=== PATIENT | male | born 1970 | race Asian ===

== ENCOUNTER 2018-08-25 15:08 | Outpatient (CLI) | payer OTHER, SELFPAY ==
[2018-08-25 15:33] LABS: Hemoglobin A1C 8.3 % (4.5-6.2)
[2018-08-25 15:58] LABS: CREATININE 0.97 mg/dL (0.70-1.30); Potassium 4.2 mmol/L (3.5-5.1)
[2018-08-26 11:09] LABS: Cholesterol 222 mg/dL (50-200); HDL Cholesterol 30 mg/dL (40-60); LDL CHOLESTEROL 87 mg/dL (<100); Triglyceride 670 mg/dL (30-150)
== END 2018-08-25 15:28 ==
PROVIDERS: PCP Family Medicine; Visit Provider Family Medicine
DX: E11.9 Type 2 diabetes mellitus without complications (principal); E78.1 Pure hyperglyceridemia
CPT/HCPCS: 36415; 80061; 83721; 82565; 83036; 84132

== ENCOUNTER 2019-11-22 22:42 | Outpatient (REF) | payer OTHER, SELFPAY ==
[2019-11-22 21:40] LABS: Anion Gap 10.2 mmol/L (3-11); BUN 20 mg/dL (7-18); CO2 25.8 mmol/L (21.0-32.0); CREATININE 1.39 mg/dL (0.70-1.30); Calcium 9.2 mg/dL (8.5-10.1); Chloride 106 mmol/L (98-107); Cholesterol 185 mg/dL (<200); Estimated GFR 54.31 (mL/min/1.73m2); Glucose 180 mg/dL (74-106); HDL Cholesterol 30 mg/dL (40-60); Hemoglobin A1C 8.6 % (3.8-5.6); Potassium 3.7 mmol/L (3.5-5.1); Sodium 142 mmol/L (136-145); Triglyceride 546 mg/dL (<150)
[2019-11-22 21:59] LABS: LDL CHOLESTEROL 92 mg/dL (<100)
[2019-11-22 22:12] LABS: Microalb ug/mg Crea 7.4 ug/mg Cr
== END 2019-11-22 23:02 ==
LOC: LBN 22:42
PROVIDERS: PCP Family Medicine; Visit Provider Family Medicine
DX: E11.65 Type 2 diabetes mellitus with hyperglycemia (principal); E78.5 Hyperlipidemia, unspecified; E87.1 Hypo-osmolality and hyponatremia
CPT/HCPCS: 80048; 80061; 83721; 82043; 82570; 83036

== ENCOUNTER 2020-12-04 11:43 | Emergency (ER) | payer OTHER, SELFPAY ==
--- NOTE | 2020-12-04 11:45 | DI.RAD_ITS ---
Exam(s) XR THUMB LT EXAM: XR THUMB LT CLINICAL HISTORY: fb through thumb. TECHNIQUE: 2D digital imaging was performed. COMPARISON: No exams were available for comparison FINDINGS: There is no evidence of acute fracture. No radiopaque foreign body. There are corticated calcific d ensities around the distal interphalangeal joint which do not have the appearance of acute fracture f ragments. There is no radiographic evidence of osteomyelitis, given the puncture wound history here. IMPRESSION: DATA REPOSITORY: RADIATION DOSE DELIVERED:
[2020-12-04 11:46] VITALS: BP 149/105; PULSE 80; RESP 15; TEMP 36.4; O2SAT 98
--- NOTE | 2020-12-04 13:42 | ED.GENADUL_ITS ---
Discharge Plan Disposition Patient Disposition: HOME Condition: Good Discharge Details Clinical Impression: Puncture wound Primary Care Provider: [facility] ED Provider: Charline Garcia Home Meds and New Rx's Prescriptions: Continued (DME) blood-glucose meter [Accu-Chek Trudy Plus Meter] Misc See Rx Instructions .ROUTE .MEDSUPPLY Qty: 1 RF: 0 (DME) Accu-Chek Trudy Plus test strp Strip See Rx Instructions .ROUTE .MEDSUPPLY Qty: 100 RF: 3 (DME) lancets [Accu-Chek Multiclix Lancet] Misc See Rx Instructions .ROUTE .MEDSUPPLY Qty: 100 RF: 3 metformin 1,000 mg tablet 1,000 mg PO BID Qty: 180 RF: 3 amlodipine 5 mg tablet 5 mg PO DAILY Qty: 90 RF: 3 lisinopril-hydrochlorothiazide 10-12.5 mg tablet 1 tab PO DAILY Qty: 90 RF: 3 triamcinolone acetonide 15 GM cream 1 appful Topical BID PRNQty: 45 RF: 1 fenofibrate 120 mg tablet 120 mg PO DAILY Qty: 90 RF: 3 Discharge Instructions Instructions: Puncture Wound (ED) Additional Instructions: ibuprofen and tylenol for pain keep clean wash twice daily keep covered and decrease use at work no indication for antibiotics return with spreading redness, fever, worsening pain Medical Decision Making X-ray does not show evidence of fracture or foreign body Wound cleansed copiously with soap and irrigated Dressing applied Current research does not indicate need for prophylactic antibiotics, so I did not supply abuse at this time Type this is up-to-date for patient within the past 10 years. Dressing was applied, return precautions discussed patient Tylenol and ibuprofen as needed pain recommended Medical Records Medical records reviewed: Yes I reviewed the patient's medical records. HPI General Mode of arrival: ambulatory . Date/Time Provider Initiated Documentation: 12/04/20 11:57 . Limitations to Documentation: no limitations . Information obtained by: patient . HPI Narrative: This 50-year-old male presents with report of puncture wound to his left thumb. He states he was at work and accidentally impaled his finger with nail from a nail gun. He actually remove the nail himself. He was unsure regarding his tetanus which is why he arrived. Nursing staff tells me his tetanus was updated in 2017. Patient is a diabetic but not insulin-dependent, he states his blood sugars are typically well controlled. He denies any strength or sensation changes. He has dull pain to the tip of his thumb. He denies any additional complaints at this time. Event occurred in our prior to arrival. He denies any difficulties with range of motion. Related Data Home Medications Medication Instructions Recorded Confirmed triamcinolone acetonide 1 appful TOPICAL BID PRN #45 gm 10/21/16 12/04/20 blood sugar diagnostic #100 each 11/23/19 12/04/20 blood-glucose meter #1 each 11/23/19 12/04/20 lancets #100 each 11/23/19 12/04/20 fenofibrate 120 mg tablet 120 mg PO DAILY #90 tab 04/24/20 12/04/20 amlodipine 5 mg tablet 5 mg PO DAILY #90 tab 05/24/20 12/04/20 metformin 1,000 mg tablet 1,000 mg PO BID #180 tab 05/24/20 12/04/20 lisinopril 10 1 tab PO DAILY #90 tab 11/26/20 12/04/20 mg-hydrochlorothiazide 12.5 mg tablet Previous Rx's Medication Instructions Recorded blood sugar diagnostic #100 each 11/23/19 blood-glucose meter #1 each 11/23/19 lancets #100 each 11/23/19 fenofibrate 120 mg tablet 120 mg PO DAILY #90 tab 04/24/20 amlodipine 5 mg tablet 5 mg PO DAILY #90 tab 05/24/20 metformin 1,000 mg tablet 1,000 mg PO BID #180 tab 05/24/20 lisinopril 10 1 tab PO DAILY #90 tab 11/26/20 mg-hydrochlorothiazide 12.5 mg tablet Allergies Allergy/AdvReac Type Severity Reaction Status Date / Time No Known Allergies Allergy Verified 12/04/20 11:51 General Stated Complaint: Laceration RANDI: 4 Review of Systems Narrative: Review of systems negative x3 aside from where indicated in HPI [facility] Family History (Updated 11/26/20 @ 16:42 by Re Rodriguez) Mother No problems noted. Father , 72 No problems noted. Sister No problems noted. Brother No problems noted. Brother No problems noted. Daughter No problems noted. Daughter No problems noted. Social History (Updated 11/26/20 @ 16:41 by Re Rodriguez) Smoking/Tobacco Use Status: Former Tobacco Use tobacco type: cigarettes Quit Date: 04/12/14 Tobacco: How many years used: 30 Second Hand Exposure: Yes Smoking risk assessment performed?: Yes Alcohol Intake: former Drug use: Socially Substance use type: marijuana Caregiver/Support person: Yes Household members: family Housing: house Do you need help understanding health information?: Never Pets and animals: No Sexually active: Yes Do you think of yourself as: straight/heterosexual Current gender identity: male What is your relationship status?: How often do you talk on the phone with friends or family?: twice per week How often do you get together with friends or relatives?: twice per week Do you belong to any clubs or organized social groups?: no Panel score (0-1 are the most socially isolated patients): 1 What type of physical activity do you participate in: bicycling Duration: > 90 minutes/day Frequency: daily Ida/Alevism: Jainism Special ida needs: No Seatbelt use: always Helmet use: No Drive intox or ride w/intox [employer] driver: No Do you feel safe at home: Yes Do you feel safe in your relationship?: Yes Exam Const General: cooperative and no acute distress Extrem Other: Left distal thumb with puncture wound, overlying radial aspect of thumb, and there is a puncture and some ecchymosis, sensation is intact, range of motion is intact, capillary refill is intact Course Vital Signs Vital signs: Vital Signs Temperature 36.4 C L 12/04/20 11:46 Pulse 80 12/04/20 11:46 Respiratory Rate 15 12/04/20 11:46 Blood Pressure 149/105 H 12/04/20 11:46 Pulse Oximetry 98 12/04/20 11:46 Temperature 36.4 C L 12/04/20 11:46 Temperature Source Temporal Artery Scan 12/04/20 11:46 Pulse 80 12/04/20 11:46 Respiratory Rate 15 12/04/20 11:46 Respiratory Effort Non-Labored 12/04/20 11:50 Blood Pressure 149/105 H 12/04/20 11:46 Blood Pressure Position Sitting 12/04/20 11:46 Pulse Oximetry 98 12/04/20 11:46 Oxygen Delivery Method Room Air 12/04/20 11:46 Oxygen Flow Rate 0 12/04/20 11:46 Pain Level 2 12/04/20 12:46
== END 2020-12-04 12:47 | disposition home or self-care (01) ==
PROVIDERS: Emergency Provider Physician Assistant; PCP Family Medicine
DX: S61.032A Puncture wound without foreign body of left thumb without damage to nail, initial encounter (principal); W29.4XXA Contact with nail gun, initial encounter; W45.0XXA Nail entering through skin, initial encounter; Y99.0 Civilian activity done for income or pay
CPT/HCPCS: 99283; 73140

== ENCOUNTER 2022-08-20 20:40 | Outpatient (REF) | payer OTHER, SELFPAY ==
[2022-08-20 21:38] LABS: COMMENT (LAB VIEW ONLY) 168.02 mg/dL; Microalb ug/mg Crea 8.3 ug/mg Cr
== END 2022-08-20 20:41 | disposition home or self-care (01) ==
LOC: LBN 20:40
PROVIDERS: PCP Family Medicine; Visit Provider Family Medicine
DX: E11.9 Type 2 diabetes mellitus without complications (principal)
CPT/HCPCS: 82043; 82570